=== PATIENT | female | born 1970 | race Caucasian/White ===

== ENCOUNTER → 2018-08-26 16:51 | Outpatient (CLI) | payer OTHER, SELFPAY ==
--- NOTE | 2018-08-26 16:53 | DI.RAD.S_ITS ---
PROCEDURE: XR WRIST RT MIN 3V INDICATIONS: Possible Fracture TECHNIQUE: 3 views of the wrist were acquired. COMPARISON: None. FINDINGS: Bones: No fractures or dislocations. No suspicious bony lesions. Lucency seen in the scaphoid, which may be age-indeterminate cysts. Soft tissues: No suspicious soft tissue calcifications. IMPRESSION: No fracture. Presumed intraosseous degenerative cyst (versus less likely erosion) in the scaphoid, technically indeterminate and recommend clinical correlation. Dictated by: Brady Bowles M.D. on 08/26/2018 at 17:13 Approved by: Brady Bowles M.D. on 08/26/2018 at 17:16
== END ==
PROVIDERS: Family Provider Family Medicine; PCP Family Medicine; Visit Provider Physician Assistant
DX: M25.531 Pain in right wrist (principal)
CPT/HCPCS: 73110

== ENCOUNTER → 2018-11-20 10:40 | Outpatient (CLI) | payer OTHER, SELFPAY ==
--- NOTE | 2018-11-20 | DI.MG.S_ITS ---
BILATERAL DIGITAL SCREENING MAMMOGRAM 3D/2D WITH CAD: 11/20/2018 CLINICAL: Baseline exam. Routine screening. No prior exams were available for comparison. The tissue of both breasts is predominantly fatty. Current study was also evaluated with a Computer Aided Detection (CAD) system. No significant masses, calcifications, or other findings are seen in either breast. IMPRESSION: NEGATIVE There is no mammographic evidence of malignancy. A 1 year screening mammogram is recommended. This exam was interpreted at Station ID: [id number]. NOTE: For mammograms, a report in lay terms will be sent to the patient. Approximately 15% of breast malignancies will not be visualized mammographically. In the management of a palpable breast mass, a negative mammogram must not discourage biopsy of a clinically suspicious lesion. Electronically Signed By: Venice brown/roderick:11/20/2018 11:52:07 letter sent: Normal Exam ACR BI-RADS Category 1: Negative 3341F
== END ==
PROVIDERS: PCP Family Medicine; Visit Provider Family Medicine
DX: Z12.31 Encounter for screening mammogram for malignant neoplasm of breast (principal)
CPT/HCPCS: 77063; 77067

== ENCOUNTER → 2021-10-12 17:35 | Outpatient (CLI) | payer OTHER, SELFPAY ==
[2021-10-12 19:34] LABS: COVID-19 CEPHEID PCR (VTM/NP) Negative (Negative)
[2021-10-12 19:35] LABS: Influenza A - CEPHEID Flu A NEGATIVE (NEGATIVE); Influenza B - CEPHEID Flu B NEGATIVE (NEGATIVE)
== END ==
PROVIDERS: PCP Student in an Organized Health Care Education/Training Program; Referring Provider Nurse Practitioner Family; Visit Provider Nurse Practitioner Family
DX: R05.9 Cough, unspecified (principal); R09.89 Other specified symptoms and signs involving the circulatory and respiratory systems; R52 Pain, unspecified; Z20.822 Contact with and (suspected) exposure to COVID-19
CPT/HCPCS: 87502; U0003

== ENCOUNTER → 2022-12-08 11:31 | Outpatient (CLI) | payer OTHER, SELFPAY ==
[2022-12-08 12:22] LABS: COVID-19 CEPHEID 4-PLEX PCR Negative (Negative); Influenza A - CEPHEID Flu A NEGATIVE (NEGATIVE); Influenza B - CEPHEID Flu B NEGATIVE (NEGATIVE); Respiratory Syncytial Virus Negative (Negative)
== END ==
PROVIDERS: PCP Student in an Organized Health Care Education/Training Program; Visit Provider Nurse Practitioner Family
DX: J06.9 Acute upper respiratory infection, unspecified (principal); R19.7 Diarrhea, unspecified
CPT/HCPCS: 0241U; 87205

== ENCOUNTER → 2022-12-09 12:04 | Outpatient (CLI) | payer OTHER, SELFPAY ==
[2022-12-09 14:16] LABS: Occult Blood 1 Negative (Negative); Occult Blood 2 Negative (Negative); Occult Blood 3 Negative (Negative)
[2022-12-09 14:22] LABS: Clostridium Difficile Tox PCR Negative for C. diff (Negative)
== END ==
PROVIDERS: PCP Student in an Organized Health Care Education/Training Program; Referring Provider Nurse Practitioner Family; Visit Provider Nurse Practitioner Family
DX: R19.7 Diarrhea, unspecified (principal)
CPT/HCPCS: 82270; 87045; 87329; 87493; 87899

== ENCOUNTER → 2023-02-28 16:45 | Outpatient (CLI) | payer OTHER, SELFPAY ==
[2023-03-01 13:12] LABS: Fecal Immunochemical Test Negative (Negative)
== END ==
PROVIDERS: PCP Pediatrics; Referring Provider Student in an Organized Health Care Education/Training Program; Visit Provider Student in an Organized Health Care Education/Training Program
DX: Z12.11 Encounter for screening for malignant neoplasm of colon (principal)
CPT/HCPCS: 82274

== ENCOUNTER → 2023-04-19 14:47 | Outpatient (CLI) | payer OTHER, SELFPAY | PROVIDERS: PCP Pediatrics; Referring Provider Pediatrics; Visit Provider Pediatrics | DX: R00.0 Tachycardia, unspecified (principal) | CPT/HCPCS: 93242 ==

== ENCOUNTER 2024-04-15 10:45 | Emergency (ER) | payer OTHER, SELFPAY ==
[2024-04-15] VITALS (15 sets, daily range): BP systolic 159–190; BP diastolic 84–114; PULSE 61–82; RESP 11–23; TEMP 36.6–36.7; O2SAT 95–100; BMI 29.0
--- NOTE | 2024-04-15 10:54 | DI.RAD.S_ITS ---
PROCEDURE: XR CHEST 1V INDICATIONS: chest pain TECHNIQUE: One view of the chest was acquired. COMPARISON: None. FINDINGS: Surgical changes and devices: None. Lungs and pleura: Lungs are clear. No pleural effusions or pneumothorax. Mediastinum: Mediastinal contours appear normal. Heart size is normal. Bones and chest wall: No suspicious bony lesions. Overlying soft tissues appear unremarkable. IMPRESSION: No acute cardiopulmonary abnormality is seen. Dictated by: Salvador Zavala M.D. on 04/15/2024 at 11:57 Approved by: Salvador Zavala M.D. on 04/15/2024 at 11:58
--- NOTE | 2024-04-15 10:58 | EKG_ITS ---
Formerly [facility] [address] [place] [address] Test Date: 2024-04-15 Pat Name: Margaret Edouard Department: Room: Gender: Female [employer]: : 1970 Requested By: Order Number: [id number] Reading MD: Anthony Mae MD Measurements Intervals [place] Rate: 73 P: 64 CO: 164 QRS: 5 QRSD: 100 T: 45 QT: 412 QTc: 453 Interpretive Statements Normal sinus rhythm Electronically Signed On 04-15-2024 11:31:18 PDT by Anthony Mae MD
[2024-04-15 11:07] LABS: Add Manual Diff / Slide Review NO; Basophils Absolute Auto 100 /uL (0-100); Basophils Percent Auto 0.8 % (0-2); Eosinophils Absolute Auto 300 /uL (0-450); Eosinophils Percent Auto 1.8 % (2-4); Hematocrit 41.2 % (36-46); Hemoglobin 13.9 g/dL (12.0-16.0); Lymphocytes Absolute Auto 3300 /uL (1100-4500); Lymphocytes Percent Auto 23.2 % (25-40); Mean Corpuscular HGB Conc 33.7 % (30-36); Mean Corpuscular Hemoglobin 27.3 PG (26-34); Mean Corpuscular Volume 80.9 fL (80-100); Monocytes Absolute Auto 1200 /uL (0-900); Monocytes Percent Auto 8.4 % (3-14); Neutrophils Absolute Auto 9300 /uL (1500-7000); Neutrophils Percent Auto 65.8 % (50-75); Platelet Count 593 X10^3/uL (150-400); Red Blood Cell Count 5.09 X10^6/uL (4.0-5.2); Red Cell Distribution Width 13.7 % (11.6-14.8); White Blood Cell Count 14.2 X10^3/uL (4.5-11.0)
[2024-04-15 11:12] LABS: Prothrombin Time 11.3 SECONDS (9.4-12.5)
[2024-04-15 11:15] LABS: PTT Partial Thromboplastin Tim 35 SECONDS (25.1-36.5)
[2024-04-15 11:17] LABS: Alanine Aminotransferase 38 IU/L (<35); Albumin 4.8 g/dL (3.5-5.0); Albumin Globulin Ratio 1.1 (1.0-2.8); Alkaline Phosphatase 101 U/L (38-126); Aspartate Aminotransferase 65 IU/L (14-36); BUN Creatinine Ratio 21.7 (6-22); Bilirubin Total 1.5 mg/dL (0.2-1.3); Blood Urea Nitrogen 15 mg/dL (7-17); Calcium 9.3 mg/dL (8.4-10.2); Carbon Dioxide 26 mmol/L (22-32); Chloride 105 mmol/L (98-107); Creatine Kinase 166 U/L (30-135); Estimated Glomerular Filt Rate > 60 mL/min (>60); Globulin 4.2 g/dL (1.7-4.1); Glucose 110 mg/dL (70-100); HEMOLYSIS < 15 (0-50); Lipase 207 U/L (23-300); Magnesium 2.2 mg/dL (1.6-2.3); Potassium 3.7 mmol/L (3.4-5.1); Sodium 141 mmol/L (137-145)
[2024-04-15 11:29] LABS: NT-proBNP (BNP-Adult 18+) 42 pg/mL (<125); Troponin I < 0.012 ng/mL (0.01-0.034)
--- NOTE | 2024-04-15 12:06 | ED.CHESTPAIN ---
HPI - Chest Pain General Chief Complaint: Chest Pain Stated Complaint: elevated blood pressure gastric pain blurred vison Time Seen by Provider: 04/15/24 11:29 Source: patient Mode of arrival: Ambulatory Limitations: no limitations History of Present Illness HPI narrative: Patient here for epigastric right upper quadrant pain that started this morning. Had sweating with this. No nausea or vomiting no back pain no chest pain. Never had this pain before. She still has her gallbladder. No recent stressors. No history of GERD or gastritis or stomach ulcer. No history of abdominal aortic aneurysm or dissection. Blood pressure elevated on arrival but resolved/improving without intervention. Currently 160/88. No prior history of hypertension. Pain is bloated crampy feeling. Currently 4/10 and feeling much better. No back pain no urinary complaints. Related Data Home Medications Medication Instructions Recorded Confirmed cholecalciferol (vitamin D3) 125 6,000 unit PO DAILY 08/26/18 05/03/23 mcg (5,000 unit) capsule nrpxozmtwkft-Go-lwhc-minerals 18 tab PO 08/26/18 05/03/23 mg-0.4 mg tablet (Maximum Daily Multivitamin) Previous Rx's Medication Instructions Recorded epinephrine 0.3 mg/0.3 mL 0.3 mg (0.3 mL) IM ONCE #2 ea 06/25/20 injection, auto-injector citalopram 30 mg capsule 30 mg PO DAILY #90 caps 04/02/23 cyclobenzaprine 10 mg tablet 10 mg PO BEDTIME PRN muscle spasm 04/02/23 #30 tabs Allergies Allergy/AdvReac Type Severity Reaction Status Date / Time bee venom protein (honey bee) Allergy Severe Anaphylaxis Verified 04/15/24 10:54 shellfish derived Allergy Severe anaphylaxis Verified 04/15/24 10:54 hydromorphone [From Dilaudid] Allergy Mild Mild Verified 04/15/24 10:54 itching, okay when taking benadryl erythromycin base Allergy Verified 04/15/24 10:54 Review of Systems Review of Systems Narrative: GENERAL: negative chills, fatigue, malaise, fever, sweats. HEENT: negative sinus pain, ear pain, sore throat RESPIRATORY: negative dyspnea, cough CARDIOVASCULAR: negative chest pain, palpitations GASTROINTESTINAL: negative nausea, vomiting, positive abdominal pain : negative dysuria, frequency, hematuria MUSCULOSKELETAL: negative muscle or bony pain SKIN: negative rash, skin lesions NEUROLOGIC: negative weakness, numbness Patient History Medical History (Updated 04/30/24 @ 00:01 by ) Tachycardia Eczema Asthma Benign familial tremor (~2012) Chronic back pain (~2010) Chicken pox (~1974) History of hematologic disorder (~1989) Vision disorder Surgical History Anesthesia History of tonsillectomy (~2002) History of bilateral breast reduction surgery (~2000) History of hernia repair (~05/21/17) 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 Grandmother No problems noted. Grandfather No problems noted. Social History Smoking Status: Never smoker alcohol intake: current (Occasional ) substance use type: does not use Smoking Status: Never smoker alcohol intake frequency: holidays/special occasions only Substance Use Type: does not use Exam Narrative Exam Narrative: GENERAL: in no distress, not toxic not dyspneic HEAD: Normocephalic. EYES: Pupils equal round ENT: Mucous membranes moist. NECK: Trachea midline. CARDIOVASCULAR: Regular rate and rhythm RESPIRATORY: Clear to auscultation. Breath sounds equal bilaterally. No wheezes, rales, or rhonchi. GASTROINTESTINAL: Abdomen soft, mild upper tenderness. Negative Ferris's no CVA tenderness no pain exam bowel sounds are present. Peritoneal signs. EXTREMITIES: No gross deformities. BACK: No flank tenderness. NEURO: AOx4. SKIN: Warm and dry PSYCH: Not anxious, is cooperative Initial Vital Signs Initial Vital Signs: Vital Signs Temperature 98.1 F 04/15/24 10:46 Pulse Rate 82 04/15/24 10:46 Respiratory Rate 14 04/15/24 10:46 Blood Pressure 190/114 H 04/15/24 10:46 Pulse Oximetry 98 04/15/24 10:46 Oxygen Delivery Method Room Air 04/15/24 10:46 Course Orders Ordered: Discontinued Medications Aspirin (Aspirin 81 Mg Chew Tab) 324 mg PO NOW ONE Stop: 04/15/24 10:54 Last Admin: 04/15/24 12:28 Dose: Not Given Documented By: MPO Sodium Chloride (Normal Saline 0.9%) 1,000 mls @ 1,000 mls/hr IV BOLUS ONE Stop: 04/15/24 13:13 Last Infusion: 04/15/24 14:32 Dose: Infused Documented By: Admin: 04/15/24 12:30 Dose: 1,000 mls/hr Documented By: JORDY Vital Signs Vital signs: Vital Signs - 8 hr 04/15/24 10:46 04/15/24 10:50 04/15/24 10:50 Temperature 98.1 F Pulse Rate 82 75 Respiratory Rate 14 Blood Pressure 190/114 H 190/114 H Pulse Oximetry 98 98 Oxygen Delivery Method Room Air 04/15/24 11:00 04/15/24 11:00 04/15/24 11:30 Temperature Pulse Rate 73 69 Respiratory Rate 12 20 Blood Pressure 159/94 H Pulse Oximetry 99 99 Oxygen Delivery Method 04/15/24 11:30 04/15/24 12:00 04/15/24 12:00 Temperature Pulse Rate 63 Respiratory Rate 14 Blood Pressure 160/88 H 170/84 H Pulse Oximetry 99 Oxygen Delivery Method 04/15/24 12:31 04/15/24 12:32 04/15/24 12:32 Temperature Pulse Rate 79 70 Respiratory Rate 19 Blood Pressure 189/91 H Pulse Oximetry 100 100 Oxygen Delivery Method 04/15/24 13:00 04/15/24 13:30 04/15/24 13:37 Temperature Pulse Rate 71 69 Respiratory Rate 14 Blood Pressure 165/87 H Pulse Oximetry 100 100 Oxygen Delivery Method 04/15/24 13:37 04/15/24 14:00 Temperature Pulse Rate 75 66 Respiratory Rate 23 12 Blood Pressure Pulse Oximetry 95 99 Oxygen Delivery Method MDM - Chest Pain Lab Data 04/15/24 10:57 04/15/24 10:57 Labs: Lab Results 04/15/24 Range/Units 10:57 WBC 14.2 H (4.5-11.0) X10^3/uL RBC 5.09 (4.0-5.2) X10^6/uL Hgb 13.9 (12.0-16.0) g/dL Hct 41.2 (36-46) % MCV 80.9 (80-100) fL MCH 27.3 (26-34) PG MCHC 33.7 (30-36) % RDW 13.7 (11.6-14.8) % Plt Count 593 H (150-400) X10^3/uL Neut % (Auto) 65.8 (50-75) % Lymph % (Auto) 23.2 L (25-40) % Tyler % (Auto) 8.4 (3-14) % Eos % (Auto) 1.8 L (2-4) % Baso % (Auto) 0.8 (0-2) % Neut # (Auto) 9300 H (6067-7512) /uL Lymph # (Auto) 3300 (1289-3856) /uL Tyler # (Auto) 1200 H (0-900) /uL Eos # (Auto) 300 (0-450) /uL Baso # (Auto) 100 (0-100) /uL PT 11.3 (9.4-12.5) SECONDS INR 1.0 (0.9-1.3) APTT 35 (25.1-36.5) SECONDS Sodium 141 (137-145) mmol/L Potassium 3.7 (3.4-5.1) mmol/L Chloride 105 (98-107) mmol/L Carbon Dioxide 26 (22-32) mmol/L BUN 15 (7-17) mg/dL Creatinine 0.69 (0.52-1.04) mg/dL Estimated GFR > 60 (>60) mL/min BUN/Creatinine Ratio 21.7 (6-22) Glucose 110 H (70-100) mg/dL Calcium 9.3 (8.4-10.2) mg/dL Magnesium 2.2 (1.6-2.3) mg/dL Total Bilirubin 1.5 H (0.2-1.3) mg/dL AST 65 H (14-36) IU/L ALT 38 H (<35) IU/L Alkaline Phosphatase 101 (38-126) U/L Total Creatine Kinase 166 H (30-135) U/L Troponin I < 0.012 (0.01-0.034) ng/mL NT-Pro-B Natriuret Pep 42 (<125) pg/mL Total Protein 9.0 H (6.3-8.2) g/dL Albumin 4.8 (3.5-5.0) g/dL Globulin 4.2 H (1.7-4.1) g/dL Albumin/Globulin Ratio 1.1 (1.0-2.8) Lipase 207 (23-300) U/L Imaging Data US - abdomen: Radiologist's Impression: [address] [address] Ultrasound Report Signed Patient: Margaret Edouard MR#: [id number] : 1970 Acct:[id number] Age/Sex: 53 / F Date of Service: 04/15/24 Loc: ED Accession Number: [id number] Procedure: US abdomen limited Ordering Provider: Jas Lopez MD PROCEDURE: US ABDOMEN LIMITED INDICATIONS: Upper abdominal pain TECHNIQUE: Real-time scanning was performed of the abdominal and retroperitoneal organs, with image documentation. COMPARISON: [facility], CT, CT ABDOMEN PELVIS W CON, 04/15/2024, 12:25. FINDINGS: Liver: Liver is normal in size and homogeneous in echotexture. Gallbladder: The gallbladder wall appears calcified with shadowing of the internal contents. Biliary ducts: Intrahepatic bile ducts are non-dilated. Extrahepatic bile duct caliber measures 6 mm. Normal is 6-7 mm or less in diameter, or 10 mm or less post-cholecystectomy. Pancreas: Visualized portions of the pancreas are sonographically normal. Miscellaneous: No free abdominal fluid. IMPRESSION: The gallbladder wall appears calcified with shadowing of the internal contents. 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 Dictated by: Salvador Zavala M.D. on 04/15/2024 at 13:33 Approved by: Salvador Zavala M.D. on 04/15/2024 at 13:35 CT scan - abdomen/pelvis: Radiologist's Impression: [address] [address] [address] Scan Report Signed Patient: Margaret Edouard MR#: [id number] : 1970 Acct:[id number] Age/Sex: 53 / F Date of Service: 04/15/24 Loc: ED Accession Number: [id number] Procedure: CT abdomen pelvis w con Ordering Provider: Jas Lopez MD PROCEDURE: CT ABDOMEN PELVIS W CON INDICATIONS: Epigastric pain/right upper quadrant pain/IV contrast only TECHNIQUE: After the administration of intravenous contrast, axial sections acquired from the lung bases to the pubic symphysis. Coronal and sagittal reformats were performed. For radiation dose reduction, the following was used: automated exposure control, adjustment of mA and/or kV according to patient size. COMPARISON: [facility], CT, CT ABD W&WO CON PELVIS W CON, 05/25/2017, 8:26. FINDINGS: Image quality: Diagnostic. Lower Chest: 4 millimeter right lower lobe nodule (5/8). Small hiatal hernia. ABDOMEN: Liver: No solid mass. Gallbladder: Layering high attenuation material within the gallbladder, may represent sludge. Biliary ducts: No biliary dilation. Pancreas: No ductal dilation. Spleen: Atrophic and calcified. Adrenal Glands: No adrenal nodules. Kidneys and Ureters: No hydronephrosis. No solid mass. No complex renal cystic lesion which requires follow up. Stomach and Bowel: Sleeve gastrectomy changes are noted within the stomach. Normal colonic caliber, without significant wall thickening. Few diverticula without diverticulitis. Normal appendix. Peritoneum: No abnormal intraperitoneal fluid. No free air. Ventral Wall: No significant ventral hernia. Abdominal Nodes: No retroperitoneal or mesenteric adenopathy by size criteria. Vessels: Aorta and inferior vena cava are normal in size. PELVIS: Pelvic Organs: Unremarkable. Bladder: No bladder wall thickening, accounting for underdistention. Pelvic Nodes: No enlarged lymph nodes. Miscellaneous: No inguinal hernias are seen. Bones: No aggressive osseous abnormality. IMPRESSION: 1. Layering high attenuation material within the gallbladder, may represent sludge. 2. Few diverticula without evidence of diverticulitis. Normal appendix. 3. Otherwise, no acute findings within the abdomen or pelvis. 4. Redemonstration of atrophic and calcified spleen. Dictated by: Salvador Zavala M.D. on 04/15/2024 at 13:00 Approved by: Salvador Zavala M.D. on 04/15/2024 at 13:04 Chest x-ray: Radiologist's Impression: [address] [address] XRay Report Signed Patient: Margaret Edouard MR#: [id number] : 1970 Acct:[id number] Age/Sex: 53 / F Date of Service: 04/15/24 Loc: ED Accession Number: [id number] Procedure: XR chest 1V Ordering Provider: Jas Lopez MD PROCEDURE: XR CHEST 1V INDICATIONS: chest pain TECHNIQUE: One view of the chest was acquired. COMPARISON: None. FINDINGS: Surgical changes and devices: None. Lungs and pleura: Lungs are clear. No pleural effusions or pneumothorax. Mediastinum: Mediastinal contours appear normal. Heart size is normal. Bones and chest wall: No suspicious bony lesions. Overlying soft tissues appear unremarkable. IMPRESSION: No acute cardiopulmonary abnormality is seen. Dictated by: Salvador Zavala M.D. on 04/15/2024 at 11:57 Approved by: Salvador Zavala M.D. on 04/15/2024 at 11:58 [facility] Narrative Medical decision making narrative: Patient here for epigastric right upper quadrant pain that started this morning. Had sweating with this. No nausea or vomiting no back pain no chest pain. Never had this pain before. She still has her gallbladder. No recent stressors. No history of GERD or gastritis or stomach ulcer. No history of abdominal aortic aneurysm or dissection. Blood pressure elevated on arrival but resolved/improving without intervention. Currently 160/88. No prior history of hypertension. Pain is bloated crampy feeling. Currently 4/10 and feeling much better. No back pain no urinary complaints. After history and exam EKG CBC CMP troponin chest x-ray case monitor CT abdomen pelvis normal saline lipase MDM Medical records reviewed: No recent visit for this complaint Differential considered: Includes but not limited to STEMI non-STEMI pancreatitis cholecystitis cholelithiasis gastritis acid reflux Lab Test results independently reviewed as above. Pertinent findings: WBC 14.2 hemoglobin 13.9 AST 65 ALT 38 total bilirubin 1.5 alkaline phosphatase 101 troponin less than 0.012 Independently reviewed EKG normal sinus rhythm rate [address] elevation or depression Imaging studies independently reviewed: Ultrasound abdomen possible porcelain gallbladder CT abdomen pelvis high attenuation within the gallbladder may represent sludge Chest x-ray no acute finding Consultations: 2:[address] Alaniz, general surgery, appropriate for discharge home and follow up in her office for outpatient workup for the gallbladder. Treatments: Normal saline Re-evaluations: 2:45 p.m.. Patient pain-free. Blood pressure has improved. Reviewed results with patient. Awaiting call back from general surgery for follow up. She agrees with treatment plan. Return precautions reviewed. Work note provided. She desires discharge home Discussion: Appropriate for discharge home exam is reassuring. Patient blood pressure on arrival likely reactive to the pain. No medications were given to lower the blood pressure. This did improve without intervention. Likely pain from the gallbladder, appropriate for outpatient HIDA scan and follow up with General surgery. Return precautions reviewed. Work note provided. Patient desires discharge home Diagnosis: Abdominal pain Discharge Plan Departure Patient Disposition: Home Clinical Impression: Abdominal pain Instructions: DI for Abdominal Pain-Adult, DI for General Gallbladder Conditions, DI for HIDA Scan Activity Restrictions/Additional Instructions: Your laboratory studies and imaging studies are reassuring at this time. The gallbladder may be causing your discomfort. Please call provided general surgery office today for office appointment within a week for re-evaluation and to schedule HIDA scan of the gallbladder. In the meantime no fried fatty greasy foods. Return if worse if any questions or concerns. Your blood pressure was elevated likely due to your pain. However please do see family doctor for re-evaluation of your blood pressure this week. Prescriptions: No Action cholecalciferol (vitamin D3) 5,000 unit capsule 6,000 unit PO DAILY blxchseebkkq-Cm-kynu-minerals [Maximum Daily Multivitamin] 18-0.4 mg tablet PO cyclobenzaprine 10 mg tablet 10 mg PO BEDTIME PRN (Reason: muscle spasm) Qty: 30 3RF epinephrine 0.3 mg/0.3 mL auto-injector 0.3 mg IM ONCE Qty: 2 2RF citalopram 30 mg capsule 30 mg PO DAILY Qty: 90 3RF Rx Instructions: Presume covered. If not, then 3 caps of current 10mg. Referrals: Alfredo Somers MD [Primary Care Provider] - Lissette Alaniz MD [Physician] - Stand Alone Forms: Patient Portal/API, Work Release Note
[2024-04-15] MEDS: SODIUM CHLORIDE 0.9% 1,000 ML 1000 ML IV (12:30)
== END 2024-04-15 15:10 | disposition home or self-care (01) ==
PROVIDERS: Emergency Provider Emergency Medicine; PCP Student in an Organized Health Care Education/Training Program
DX: R10.13 Epigastric pain (principal); R07.9 Chest pain, unspecified; I10 Essential (primary) hypertension
CPT/HCPCS: 36415; 71045; 74177; 76705; 80053; 82550; 83690; 83735; 83880; 84484; 85025; 85610; 85730; 93005; 96360; 96361; 99284; 99285; Q9967

== ENCOUNTER 2024-05-05 06:22 | Day surgery (SDC) | payer OTHER, SELFPAY ==
[2024-05-01 08:18] VITALS: BMI 29.4
[2024-05-05] VITALS (14 sets, daily range): BP systolic 160–210; BP diastolic 83–112; PULSE 61–81; RESP 10–16; TEMP 36.2–36.4; O2SAT 97–100; BMI 29.0
--- NOTE | 2024-05-05 | PATH_ITS ---
[facility] Accession Number: [id number] No. of containers..01 Tissue . 01 Material submitted: . gallbladder - GALLBLADDER / CONTENTS . 01 Diagnosis: GALLBLADDER WITH CONTENTS, CHOLECYSTECTOMY: Mild chronic calculous cholecystitis and reactive changes. Negative for dysplasia or malignancy. MRV 05/07/2024 1259 Local . 01 Electronically signed: . Cony Turk MD, Pathologist NPI- [id number] . 01 Gross description: . Received in formalin with two identifiers and gallbladder and contents, is an intact gallbladder 12.3 x 3.5 x 3.4 cm, with nicole to violaceous, unremarkable external surface. The cystic duct margin is inked blue and no pericystic lymph node is identified. The lumen is filled with numerous yellow to black calculi ranging from 0.1 to 0.8 cm in greatest dimension and admixed with a small amount of green-brown gelatinous bile. The mucosa is green-brown and velvety with trabeculations and no yellow discoloration, polyps, or lesions identified. The de la rosa average 0.2 cm thick. Radiology Orderly sections to include the cystic duct margin and full thickness sections are submitted in cassette A1. ([id number]) /VALENTINE 05/06/2024 1113 Local . 01 Pathologist provided ICD-10: K80.10 . 01 CPT . 752032 Specimen Comment: A courtesy copy of this report has been sent to [phone] Performed at: [address] [id number] MD Paresh Spain MD Phone: [phone]
[2024-05-05] MEDS: LACTATED RINGERS 1,000 ML 42 ML IV ×2 (06:48→09:11)
--- NOTE | 2024-05-05 07:29 | SUR.OPER ---
Supine on padded OR bed, head on pillow, safety belt at thigh, left arm padded and tucked at side. Right arm secured on padded arm board <90 degrees abduction. Legs uncrossed. Padded footboard in place. Tape over blanket to secure lower legs.
--- NOTE | 2024-05-05 07:32 | PM.PREOP ---
Pre-operative Note COVID-19 COVID-19 status: Not tested Interval Note History & Physical reviewed/Exam performed by Physician: Yes Changes to H&P: No ASA Class (for procedural sedation): II
[2024-05-05] MEDS: CEFAZOLIN 2 GM/100 ML PREMIX 100 ML IV (07:55)
[2024-05-05] MEDS: BUPIVACAINE 0.5% W/ EPI (PF) 30 ML VIAL INJ (08:09)
[2024-05-05] MEDS: iopamidoL 30 ML VIAL INJ (08:14)
--- NOTE | 2024-05-05 09:57 | DI.RAD.S_ITS ---
PROCEDURE: XR CHOLANGIOGRAM OPERATIVE INDICATIONS: LAPROSCOPIC CHOLANGIOGRAM COMPARISON: [facility], US, US ABDOMEN LIMITED, 04/15/2024, 12:33. [facility], CT, CT ABDOMEN PELVIS W CON, 04/15/2024, 12:25. FINDINGS: Biliary ducts: The surgeon injected contrast into the biliary ducts after cannulation of the cystic duct stump. Mild prominence of the common bile duct. No intraluminal filling defects to suggest retained ductal stones or sludge. No evidence for iatrogenic ductal injury. Duodenum: Contrast flows promptly through the sphincter of Oddi into the duodenum, which appears normal in caliber. IMPRESSION: Mild prominence of the common bile duct without visualized obstruction. Recommend correlation real-time operative report. Dictated by: Petty Lewis M.D. on 05/06/2024 at 16:39 Approved by: Petty Lewis M.D. on 05/06/2024 at 16:40
--- NOTE | 2024-05-05 10:19 | P.OP_ITS ---
Operative Date/Time/Diagnoses Date of procedure: 05/05/24 Time of procedure: 10:19 Pre-op diagnosis: Symptomatic cholelithiasis Post-op diagnosis: same Procedure & Clinicians Procedure: Laparoscopic cholecystectomy Intraoperative cholangiogram Laparoscopic common bile duct exploration Same procedure as scheduled: Yes Surgeon: Dillan Gamboa Anesthesia Type: General Operative Notes Procedure in detail: The patient was given preoperative antibiotic. The patient was brought to the operating room, placed on the table in the supine position. General endotracheal anesthesia was induced. The abdomen was prepped and draped. A time-out was performed. We made a 1 cm infraumbilical incision. We dissected down to the base of the umbilical stalk using cautery. We grasped the umbilical stalk with a You clamp to elevate the abdominal wall. We scored the fascia in the midline with cautery 1 cm. We pierced the peritoneum with a Peon clamp. The Waldo port was placed and the abdomen was insufflated to 15 mmHg. A 5 mm 30 degree laparoscopic was inserted. There was no evidence of any injury from the entry. Next, we placed 5 mm ports in the subxiphoid position and right upper quadrant at the midclavicular line and anterior axillary line. The patient was then positioned in reverse Trendelenburg and the table was tilted to the left. A few adhesions were taken down between the omentum and the anterior abdominal wall with cautery. The gallbladder was quite full of stones. The gallbladder was then grasped at the dome and retracted cephalad. We then dissected the cystic structures with a combination of hook cautery and blunt dissection. We obtained a critical view. Next, a cholangiogram was performed using the 6 Georgian ureteral catheter. There was good flow of contrast into the cystic duct, common duct and up into the liver. There appeared to be a distal common bile duct stone obstructing flow into the duodenum. We then administered 1 mg of glucagon and waited 5 minutes and repeated the cholangiogram. There was some flow of contrast into the duodenum but it appeared that there was 1 or 2 small stones in the distal common bile duct. We then proceeded with a laparoscopic common bile duct exploration. We first attempted to push the stones through with the 6 Georgian ureteral catheter by advancing it into the duodenum. The ureteral catheter passed into the duodenum easily but the stones did not dislodge. We then opened the Cook common bile duct exploration kit. We inserted the 0.035 guidewire through the ureteral catheter under fluoro and watched it coil in the duodenum. We removed the ureteral catheter and Fernandes clamp. We then advanced the dilator and sheath through the port. Then inserted the 8 mm balloon over the wire. Once was across sphincter of Oddi we partially inflated it with contrast. We then deflated the balloon removed it. One small stone was dragged out with the balloon. We then repeated the cholangiogram which showed good flow of contrast into the duodenum with no obvious distal common bile duct stones. We then placed hemoclips on the cystic duct and artery and divided the cystic duct and artery sharply between the clips. The gallbladder was then dissected off the liver and placed in a specimen retrieval bag. We irrigated the right upper quadrant and all the aspirate returned clear. We then removed the 5 mm ports under direct vision we removed the Waldo port. We then injected some local into the fascia and closed the fascia with 3 interrupted 0 Vicryl sutures. The skin incisions were closed with 4 Monocryl and Steri-Strips were applied. Band-Aids were applied over the Steri-Strips. EBL: 10 mL Specimen: Gallbladder and contents Post-operative Condition: stable Disposition: PACU
--- NOTE | 2024-05-05 10:35 | SUR.PHASEI ---
received to PACU after general anesthesia. Airway requiring jaw thrusts. Report received from ALYCE Busby and CECE Contreras Labetalol given per CECE Busby.
--- NOTE | 2024-05-05 10:46 | SUR.PHASEI ---
1044- Voicemail left for ALYCE Busby re: SBP.
--- NOTE | 2024-05-05 10:54 | SUR.PHASEI ---
1054 - Will give labetalol as ordered.
[2024-05-05] MEDS: LABETALOL 20 MG/4 ML SYRINGE 5 MG IV (10:57)
[2024-05-05] MEDS: OXYCODONE IR 5 MG TABLET PO ×2 (11:04→11:43)
== END 2024-05-05 12:30 | disposition home or self-care (01) ==
PROVIDERS: Referring Provider Surgery; Visit Provider Surgery
PROC: 0FT44ZZ Resection of Gallbladder, Percutaneous Endoscopic Approach (ICD-10-PCS; CPT 47562; principal; 2024-05-05 07:45)
DX: K80.10 Calculus of gallbladder with chronic cholecystitis without obstruction (principal)
CPT/HCPCS: 47564; 74300; 76000; J0330; J0690; J1100; J1170; J1200; J2250; J2405; J2704; J3010; J3490; Q9967

== ENCOUNTER → 2024-05-07 09:12 | Outpatient (CLI) | payer OTHER, SELFPAY ==
[2024-05-07 10:19] LABS: Alanine Aminotransferase 138 IU/L (<35); Albumin 3.8 g/dL (3.5-5.0); Albumin Globulin Ratio 1.2 (1.0-2.8); Alkaline Phosphatase 197 U/L (38-126); Aspartate Aminotransferase 52 IU/L (14-36); BUN Creatinine Ratio 13.4 (6-22); Bilirubin Total 1.2 mg/dL (0.2-1.3); Blood Urea Nitrogen 9 mg/dL (7-17); Calcium 9.5 mg/dL (8.4-10.2); Carbon Dioxide 26 mmol/L (22-32); Chloride 105 mmol/L (98-107); Estimated Glomerular Filt Rate > 60 mL/min (>60); Globulin 3.3 g/dL (1.7-4.1); Glucose 74 mg/dL (70-100); HEMOLYSIS < 15 (0-50); Potassium 3.8 mmol/L (3.4-5.1); Sodium 141 mmol/L (137-145); Total Protein 7.1 g/dL (6.3-8.2)
== END ==
PROVIDERS: Referring Provider Surgery; Visit Provider Surgery
DX: K80.20 Calculus of gallbladder without cholecystitis without obstruction (principal)
CPT/HCPCS: 36415; 80053

== ENCOUNTER → 2024-05-09 09:11 | Outpatient (CLI) | payer OTHER, SELFPAY ==
[2024-05-09 10:19] LABS: Alanine Aminotransferase 227 IU/L (<35); Albumin 3.8 g/dL (3.5-5.0); Albumin Globulin Ratio 1.2 (1.0-2.8); Alkaline Phosphatase 234 U/L (38-126); Aspartate Aminotransferase 100 IU/L (14-36); BUN Creatinine Ratio 21.1 (6-22); Blood Urea Nitrogen 15 mg/dL (7-17); Calcium 9.6 mg/dL (8.4-10.2); Carbon Dioxide 27 mmol/L (22-32); Chloride 105 mmol/L (98-107); Estimated Glomerular Filt Rate > 60 mL/min (>60); Globulin 3.1 g/dL (1.7-4.1); Glucose 94 mg/dL (70-100); HEMOLYSIS < 15 (0-50); Potassium 3.9 mmol/L (3.4-5.1); Sodium 139 mmol/L (137-145); Total Protein 6.9 g/dL (6.3-8.2)
== END ==
PROVIDERS: Referring Provider Surgery; Visit Provider Surgery
DX: K80.20 Calculus of gallbladder without cholecystitis without obstruction (principal)
CPT/HCPCS: 36415; 80053

== ENCOUNTER → 2024-05-19 16:32 | Outpatient (CLI) | payer OTHER, SELFPAY ==
[2024-05-19 17:58] LABS: Alanine Aminotransferase 66 IU/L (<35); Albumin 3.9 g/dL (3.5-5.0); Albumin Globulin Ratio 1.1 (1.0-2.8); Alkaline Phosphatase 137 U/L (38-126); Aspartate Aminotransferase 35 IU/L (14-36); BUN Creatinine Ratio 24.2 (6-22); Blood Urea Nitrogen 16 mg/dL (7-17); Calcium 9.7 mg/dL (8.4-10.2); Carbon Dioxide 26 mmol/L (22-32); Chloride 106 mmol/L (98-107); Estimated Glomerular Filt Rate > 60 mL/min (>60); Globulin 3.7 g/dL (1.7-4.1); Glucose 100 mg/dL (70-100); HEMOLYSIS < 15 (0-50); Potassium 4.6 mmol/L (3.4-5.1); Sodium 138 mmol/L (137-145); Total Protein 7.6 g/dL (6.3-8.2)
== END ==
PROVIDERS: Referring Provider Surgery; Visit Provider Surgery
DX: K80.20 Calculus of gallbladder without cholecystitis without obstruction (principal)
CPT/HCPCS: 36415; 80053

== ENCOUNTER → 2025-05-18 12:47 | Outpatient (CLI) | payer OTHER, SELFPAY ==
--- NOTE | 2025-05-18 12:49 | DI.MG.S_ITS ---
MM screening mammo BI: 05/18/2025. BI-RADS: 2 CLINICAL: 54-year old female for bilateral screening mammogram. Tyrer-Cuzick lifetime risk of 5.2%. No personal or first-degree family history of breast cancer. The patient is status-post reduction mammoplasty. PRIOR EXAMS 11/20/2018. MAMMOGRAPHY TECHNIQUE: 2D and 3D (tomosynthesis) digital mammographic views obtained, with additional images as needed for full coverage. Current study was also evaluated with a Computer Aided Detection (CAD) system. DENSITY B. There are scattered areas of fibroglandular density. MAMMOGRAPHY FINDINGS Bilateral: Benign-appearing calcifications noted. There are no suspicious masses, calcifications, or other findings in the breast. IMPRESSION: * No evidence of malignancy with benign findings. RECOMMENDATIONS Bilateral * Annual screening mammography. OVERALL ASSESSMENT CATEGORY BI-RADS-2: Benign. [employer] recommends annual screening mammography beginning at age 40 for women with average risk of breast cancer. ELECTRONICALLY SIGNED: Radha Davis M.D. on 05/18/2025 at 11:07:53 PM PT Interpreting Station ID: [id number]
== END ==
LOC: MAMMO 12:48
PROVIDERS: PCP Family Medicine; Referring Provider Family Medicine; Visit Provider Family Medicine
DX: Z12.31 Encounter for screening mammogram for malignant neoplasm of breast (principal); Z12.11 Encounter for screening for malignant neoplasm of colon; R92.1 Mammographic calcification found on diagnostic imaging of breast
CPT/HCPCS: 77063; 77067